=== PATIENT | female | born 1940 | race Hispanic/Latino ===

== ENCOUNTER 2017-05-31 09:59 | Outpatient (CLI) | payer MEDICARE ==
--- NOTE | 2017-05-31 14:47 | Mammography Report ---
BILATERAL DIGITAL SCREENING MAMMOGRAM with CAD: 05/31/17 09:59:00 CLINICAL: Routine screening. COMPARISON:None available. FINDINGS: The breasts are almost entirely fatty. No mass, architectural distortion or suspicious calcifications. IMPRESSION: No mammographic evidence of malignancy. BI-RADS CATEGORY: 1 - - Negative RECOMMENDATION: Routine mammographic screening in one year. COMMENT: Patient follow-up letters are generated by our [employer] application.
== END 2017-05-31 10:00 | disposition home or self-care (01) ==
LOC: MAMMO 09:59
PROVIDERS: ATTEND Family Medicine
DX: Z12.31 Encounter for screening mammogram for malignant neoplasm of breast (principal)
CPT/HCPCS: 77067; G0202

== ENCOUNTER 2018-07-23 12:39 | Outpatient (CLI) | payer MEDICARE ==
--- NOTE | 2018-07-25 08:45 | Mammography Report ---
BILATERAL DIGITAL SCREENING MAMMOGRAM with CAD: 07/23/18 12:39:00 CLINICAL: Routine screening. COMPARISON:05/31/17 FINDINGS: The breasts are almost entirely fatty. No mass, architectural distortion or suspicious calcifications. IMPRESSION: No mammographic evidence of malignancy. BI-RADS CATEGORY: 1 - - Negative RECOMMENDATION: Routine mammographic screening in one year. COMMENT: Patient follow-up letters are generated by our [employer] application.
== END 2018-07-23 12:40 | disposition home or self-care (01) ==
LOC: MAMMO 12:39
PROVIDERS: ATTEND Family Medicine
DX: Z12.31 Encounter for screening mammogram for malignant neoplasm of breast (principal)
CPT/HCPCS: 77067